=== PATIENT | male | born 1935 | race Caucasian/White ===

== ENCOUNTER 2018-12-07 13:35 | Inpatient (IN) | payer MEDICARE, BC ==
[2018-12-07 15:27] LABS: HEMATOCRIT 36.3 % (37.9-51.0); HEMOGLOBIN 12.3 g/dL (13.5-17.0); MEAN CORPUSCULAR HEMOGLOBIN 32.8 pg (27.0-33.4); MEAN CORPUSCULAR VOLUME 96 fl (80-97); PLATELET COUNT 307 10^3/uL (150-450); RED BLOOD COUNT 3.77 10^6/uL (4.35-5.55); RED CELL DISTRIBUTION WIDTH 13.9 % (11.5-14.0); WHITE BLOOD COUNT 23.4 10^3/uL (4.0-10.5)
[2018-12-07 15:28] LABS: VENOUS BLOOD BASE EXCESS -3.4 mmol/L; VENOUS BLOOD HCO3 20.4 mmol/L (20-32); VENOUS BLOOD PCO2 33.3 mmHg (35-63); VENOUS BLOOD PH 7.4 (7.30-7.42)
--- NOTE | 2018-12-07 15:30 | RADIOLOGY REPORT (SQ) ---
EXAM DESCRIPTION: CHEST SINGLE VIEW COMPLETED DATE/TIME: 12/07/2018 3:16 pm REASON FOR STUDY: pneumonia eval COMPARISON: None. EXAM PARAMETERS: NUMBER OF VIEWS: One view. TECHNIQUE: Single frontal radiographic view of the chest acquired. RADIATION DOSE: NA LIMITATIONS: None. FINDINGS: LUNGS AND PLEURA: Faintly defined opacification in the right base. MEDIASTINUM AND HILAR STRUCTURES: No masses. Contour normal. HEART AND VASCULAR STRUCTURES: Heart size is borderline. No jeni pulmonary edema. BONES: No acute findings. HARDWARE: None in the chest. OTHER: No other significant finding. IMPRESSION: Borderline cardiomegaly without pulmonary edema. Cannot exclude limited pneumonia in th e right middle lobe or lower lobe. TECHNICAL DOCUMENTATION: JOB ID: [id number] [employer]- All Rights Reserved Reading location - IP/workstation name: [email or web address]
[2018-12-07 15:33] LABS: INTERNATIONAL RATION (INR) 1.96; PROTHROMBIN TIME 22.6 SEC (11.4-15.4)
[2018-12-07 15:41] LABS: ALBUMIN 2.6 g/dL (3.5-5.0); ALKALINE PHOSPHATASE 190 U/L (38-126); ANION GAP 12 (5-19); ASPARTATE AMINO TRANSFERASE 148 U/L (17-59); BILIRUBIN,DIRECT 0.5 mg/dL (0.0-0.4); BILIRUBIN,TOTAL 0.7 mg/dL (0.2-1.3); BLOOD UREA NITROGEN 73 mg/dL (7-20); CALCIUM 8.3 mg/dL (8.4-10.2); CARBON DIOXIDE 20 mmol/L (22-30); CHLORIDE 100 mmol/L (98-107); GLUCOSE 89 mg/dL (75-110); POTASSIUM 5.9 mmol/L (3.6-5.0); TOTAL PROTEIN 5.4 g/dL (6.3-8.2)
[2018-12-07 16:08] LABS: ABSOLUTE LYMPHOCYTES# (MANUAL) 1.2 10^3/uL (0.5-4.7); ABSOLUTE MONOCYTES # (MANUAL) 0.9 10^3/uL (0.1-1.4); BASOPHILS % (MANUAL) 0 % (0-2); EOSINOPHILS % (MANUAL) 0 % (0-6); LYMPHOCYTES % (MANUAL) 5 % (13-45); MONOCYTES % (MANUAL) 4 % (3-13); SEGMENTED NEUTROPHILS % (MAN) 91 % (42-78); TOTAL CELLS COUNTED 100
[2018-12-07 16:11] LABS: PLATELET COMMENT ADEQUATE; RBC MORPHOLOGY COMMENT NORMO-CYTIC/CHROMIC
[2018-12-07] MEDS ORDERED: NORMAL SALINE 1000 ML 1,000 ML IV ONE ×2 (16:17→18:51)
[2018-12-07] MEDS ORDERED: CEFEPIME 1 GM/D5W RTU 1 GM/50 ML RTUPB IV ONE (16:17)
[2018-12-07] MEDS ORDERED: INSULIN REG, HUMAN 100 UNIT/ML 3 ML VIAL (PYX) IV ONE (16:19)
[2018-12-07] MEDS ORDERED: DEXTROSE 50%-WATER 25 GM/50 ML DISP.SYRIN IV ONE (16:19)
[2018-12-07] MEDS ORDERED: SODIUM POLYSTYRENE SULFONATE 15 GM/60 ML PO ONE (16:20)
[2018-12-07 17:04] LABS: APPEARANCE,URINE TURBID; BILIRUBIN,URINE NEGATIVE (NEGATIVE); COLOR,URINE YELLOW; GLUCOSE, URINE NEGATIVE (NEGATIVE); KETONES,URINE NEGATIVE (NEGATIVE); LEUKOCYTE ESTERASE,URINE MODERATE (NEGATIVE); NITRITE,URINE NEGATIVE (NEGATIVE); PROTEIN,URINE >=500 mg/dL (NEGATIVE); TRIPLE PHOSPHATE CRYSTAL,URINE MODERATE /HPF; URINE SPECIFIC GRAVITY 1.013; UROBILINOGEN,URINE NEGATIVE mg/dL (<2.0)
--- NOTE | 2018-12-07 17:14 | ER Document Report ---
ED General - General Chief Complaint: Urinary Problem Stated Complaint: WEAKNESS Time Seen by Provider: 12/07/18 13:53 Primary Care Provider: MAGGI RAMOS MD [Primary Care Provider] - Follow up as needed TRAVEL OUTSIDE OF THE [place] IN LAST 30 DAYS: No - HPI Notes: Patient is an 83-year-old male with a history of dementia, he cannot really offer me any significant history. Nursing did call the long-term. Evidently the patient was diagnosed recently with pneumonia as well as a urinary tract infection. It was noted by the physician that he was "not responding" so he was sent here for further evaluation. Patient does have an indwelling Iqbal. Evidently he had been hospitalized recently, had some acute urine retention. During that hospitalization he had fallen, was found to have some mild rhabdomyolysis and acute kidney injury, with a maximum creatinine of 2.2 at an outside facility. Prior to readmission back to the [facility] long-term, his creatinine was down to 1.2. They are unsure as to how long the urinary catheter had been in. The patient himself denies any pain. When I asked him if he was hungry he stated he was not. He has had diminished p.o. intake per nursing facility. - Related Data Allergies/Adverse Reactions: No Known Allergies Allergy (Unverified 12/07/18 15:18) Home Medications: Eliquis, Coreg, MiraLAX, Flomax, Tylenol, Ultram, unknown antibiotic Past Medical History - General Information source: Patient, Transfer Record, Outside Facility Records - Social History Smoking Status: Unknown if Ever Smoked Family History: Reviewed & Not Pertinent - Past Medical History Cardiac Medical History: Reports: Hx Atrial Fibrillation Review of Systems - Review of Systems -: Yes ROS unobtainable due to patient's medical condition Physical Exam - Vital signs Vitals: Temp Pulse Resp BP Pulse Ox 98.2 F 108 H 22 H 115/74 96 12/07/18 13:46 12/07/18 13:46 12/07/18 13:46 12/07/18 13:46 12/07/18 13:46 - Notes Notes: This is an 83-year-old male lying in the bed. He has Iqbal catheter in place with only scant urine noted. No acute distress. Head is normal cephalic atraumatic. Pupils are equal round, reactive to light. Oral mucosa slightly dry. No nuchal rigidity. Heart is irregularly irregular, mildly tachycardic. Lungs show mildly diminished breath sounds throughout but no wheezes, rales, rhonchi. Abdomen is globally tender with intermittent voluntary guarding. No rebound or other peritoneal signs. Extremities without cyanosis or clubbing. No posterior calf tenderness is noted. Patient is awake and alert. He is disoriented to person, place, and time. Course - Re-evaluation Re-evalutation: 12/07/18 17:15 Patient presents emergency department for evaluation. Sepsis work-up was initiated given his recent diagnosis of pneumonia as well as urinary tract infection. Laboratory investigations revealed a marked leukocytosis. His potassium is 5.9. He had been given IV fluids, as I can find no significant history of heart failure. Given his age and atrial fibrillation, however, these were only done judiciously and then hope to avoid any fluid overload. He was further given insulin, dextrose, Kayexalate. He was given IV cefepime to cover for the pneumonia evident on chest x-ray. Urine was found to be infected as well. EKG obtained and was in fact showing rapid atrial fibrillation. I suspect any rapidity is secondary to infection. Patient is abdomen patient's abdomen is significantly tender. CT scan of the abdomen and pelvis ordered to evaluate for possible abscess given his significant leukocytosis. 12/07/18 18:[address] scan failed to reveal any significant abscess. He does have a p leural effusion and a known pneumonia which is already being treated. We will admit the patient for further care. I did speak with Dr. Coleman regarding this patient. He asked that, given the time, this be passed on to the hourly shift manager physician. 12/07/18 18:51 - Vital Signs Vital signs: Temp Pulse Resp BP Pulse Ox 98.2 F 108 H 13 118/60 99 12/07/18 13:46 12/07/18 13:46 12/07/18 18:16 12/07/18 18:16 12/07/18 18:16 - Laboratory Result Diagrams: 12/07/18 15:02 12/07/18 15:02 Laboratory results interpreted by me: 12/07/18 12/07/18 12/07/18 15:02 15:02 15:02 WBC 23.4 H RBC 3.77 L Hgb 12.3 L Hct 36.3 L Seg Neuts % (Manual) 91 H Lymphocytes % (Manual) 5 L Abs Neuts (Manual) 21.3 H PT 22.6 H VBG pCO2 Sodium 132.0 L Potassium 5.9 H Carbon Dioxide 20 L BUN 73 H Creatinine 4.76 H Est GFR ( Amer) 14 L Est GFR (Non-Af Amer) 12 L Calcium 8.3 L Direct Bilirubin 0.5 H AST 148 H Alkaline Phosphatase 190 H Total Protein 5.4 L Albumin 2.6 L Urine Protein Urine Blood Ur Leukocyte Esterase 12/07/18 12/07/18 15:02 16:37 WBC RBC Hgb Hct Seg Neuts % (Manual) Lymphocytes % (Manual) Abs Neuts (Manual) PT VBG pCO2 33.3 L Sodium Potassium Carbon Dioxide BUN Creatinine Est GFR ( Amer) Est GFR (Non-Af Amer) Calcium Direct Bilirubin AST Alkaline Phosphatase Total Protein Albumin Urine Protein >=500 H Urine Blood SMALL H Ur Leukocyte Esterase MODERATE H - Diagnostic Test Radiology reviewed: Reports reviewed Radiology results interpreted by me: 12/07/18 17:17 Chest X-Ray 12/07/18 14:39 IMPRESSION: Borderline cardiomegaly without pulmonary edema. Cannot exclude limited pneumonia in the right middle lobe or lower lobe. - EKG Interpretation by Me Additional EKG results interpreted by me: 12/07/18 17:18 Atrial fibrillation with a rate of 110 bpm. Normal axis and intervals, no acute ST changes concerning for ischemia or infarction. No old studies available for comparison. Critical Care Note - Critical Care Note Total time excluding time spent on procedures (mins): 30 Discharge - Discharge Clinical Impression: Hyperkalemia Sepsis Qualifiers: Sepsis type: sepsis due to unspecified organism Severe sepsis acute organ dysfunction type: acute renal failure Acute renal failure type: unspecified Severe sepsis shock status: without septic shock Pneumonia Qualifiers: Laterality: right Lung location: unspecified part of lung Urinary tract infection Qualifiers: Urinary tract infection type: site unspecified Hematuria presence: without hematuria Qualified Code(s): N39.0 - Urinary tract infection, site not specified Acute renal failure Qualifiers: Acute renal failure type: unspecified Qualified Code(s): N17.9 - Acute kidney failure, unspecified Condition: Stable Disposition: ADMITTED INPATIENT Admitting Provider: Dr. Pederson Unit Admitted: [facility]U Referrals: MAGGI RAMOS MD [Primary Care Provider] - Follow up as needed
--- NOTE | 2018-12-07 18:30 | RADIOLOGY REPORT (SQ) ---
EXAM DESCRIPTION: CT ABD/PELVIS NO ORAL OR IV COMPLETED DATE/TIME: 12/07/2018 5:37 pm REASON FOR STUDY: abdominal tenderness, sepsis, GUICHO COMPARISON: None. TECHNIQUE: CT scan of the abdomen and pelvis performed without intravenous or oral contrast. Images reviewed with lung, soft tissue, and bone windows. Reconstructed coronal and sagittal MPR images revi ewed. All images stored on PACS. All CT scanners at this facility use dose modulation, iterative reconstruction, and/or weight based d osing when appropriate to reduce radiation dose to as low as reasonably achievable (ALARA). [facility]: Dose Right [facility]: CareDose [facility]: Dose Right [facility]: Teradose 4D [facility]: Smart Technologies RADIATION DOSE: CT Rad equipment meets quality standard of care and radiation dose reduction techniq ues were employed. CTDIvol: 14.3 mGy. DLP: 798 mGy-cm.mGy. LIMITATIONS: None. FINDINGS: LOWER CHEST: Moderate right pleural effusion with associated atelectasis in the right lowe r lobe. No mass. No infiltrate. NON-CONTRASTED LIVER, SPLEEN, ADRENALS: Evaluation limited by lack of IV contrast. No identified sign ificant masses. PANCREAS: No masses. No peripancreatic inflammatory changes. GALLBLADDER: Small gallstones are present. RIGHT KIDNEY AND URETER: Small intrarenal calculi. Mild hydronephrosis. No definite obstructing shan culus is seen. LEFT KIDNEY AND URETER: Mild hydronephrosis. No definite obstructing calculus is seen. AORTA AND RETROPERITONEUM: No aneurysm. No retroperitoneal masses or adenopathy. BOWEL AND PERITONEAL CAVITY: No obvious masses or inflammatory changes. No free fluid. APPENDIX: Not identified. PELVIS, BLADDER, AND ABDOMINAL WALL:A Iqbal catheter is present. No pelvic mass or fluid collection. BONES: Scoliosis and degenerative disc changes. OTHER: No other significant finding. IMPRESSION: Right pleural effusion with mild atelectasis in the right lower lobe. Small right intra renal calculi. Mild bilateral hydronephrosis. No obstructing calculus is seen on either side. Osse ous findings as described. COMMENT: Quality ID # [id number]: Final reports with documentation of one or more dose reduction techniques (e.g., Automated exposure control, adjustment of the mA and/or kV according to patient size, use of iterative reconstruction technique) TECHNICAL DOCUMENTATION: JOB ID: [id number] [employer]- All Rights Reserved Reading location - IP/workstation name: [email or web address]
[2018-12-07] MEDS ORDERED: ACETAMINOPHEN 325 MG TABLET PO PRN (19:28)
[2018-12-07] MEDS ORDERED: ONDANSETRON HCL INJ/PF 4 MG/2 ML SDV IV PRN (19:28)
[2018-12-07] MEDS ORDERED: MAG HYDROX/AL HYDROX/SIMETH SUSP 30 ML UDCUP PO PRN (19:28)
[2018-12-07] MEDS ORDERED: ZOLPIDEM TARTRATE 5 MG TABLET PO PRN (19:28)
[2018-12-07] MEDS ORDERED: MAGNESIUM HYDROXIDE SUSP 30 ML UDCUP PO PRN (19:28)
[2018-12-07] MEDS ORDERED: ALBUTEROL SULFATE 0.083% NEB 2.5 MG/3 ML AMPUL NEB PRN (19:28)
[2018-12-07] MEDS ORDERED: TRAMADOL HCL 50 MG TABLET PO PRN (19:50)
[2018-12-07] MEDS ORDERED: VANCOMYCIN HCL 0 MG in DEXTROSE 5%-WATER 250 ML IV NR (20:00)
--- NOTE | 2018-12-07 20:41 | EKG REPORT ---
SEVERITY:- ABNORMAL ECG - ATRIAL FIBRILLATION, V-RATE 74-133 LOW VOLTAGE IN FRONTAL LEADS : Confirmed by: Elly Dior MD 07-Dec-2018 20:41:24
[2018-12-07] MEDS: IPRATROPIUM/ALBUTEROL 0.5-2.5 MG/3 ML AMPUL NEB SCH (21:31)
[2018-12-07] MEDS ORDERED: APIXABAN 5 MG TABLET PO SCH (22:00)
--- NOTE | 2018-12-07 22:07 | PDOC H&P ---
History of Present Illness Admission Date/PCP: 12/07/18 18:57 MAGGI RAMOS MD Patient complains of: Not eating, not acting himself History of Present Illness: ANIL LOREDO is a 83 year old male who presents from his halfway facility with acute onset of recent anorexia as well as altered mental status. Is not acting himself at the halfway facility where he resides. There was no reported fever or chills. The patient is demented and oriented only to his name and therefore no history could be obtained from him. He was fairly somnolent but arousable. He was recently diagnosed with pneumonia and UTI and apparently failed outpatient management and therefore he was referred to the emergency room by his SNF physician. He has an indwelling Iqbal catheter that was noted to be obstructed and upon replacement of his Iqbal catheter had a 1600 mL of tea colored urine output later on urinated another 1600 mL. Upon presentation to the emergency room, his blood pressure was 115/74 with a pulse of 108 respiratory to 22 temperature 98.1 pulse 7096% on room air. Labs revealed leukocytosis 23.4 with hemoglobin of 12.3 hematocrit 36.3 with neutrophils of 91% with absolute neutrophils of 21.3. PT was 22.6 and INR 1.96. He has blood gas showed a pH of 7.4 with a bicarbonate of 20.4. CMP was remarkable for hypokalemia 137 hyperkalemia 5.9 for which the patient was given Kayexalate with subsequent large bowel management. Creatinine was 73 and 4.76. Alkaline phosphatase was 190 and AST 148 with a total protein of 5.4 and albumin 2.6 lactic acid was 1.3 and ALT 142. Urinalysis positive for UTI. Abdominal pelvic CT scan revealed right pleural effusion with mild atelectasis in the right lower lobe and small right intra renal calculi with mild bilateral hydronephrosis. EKG showed atrial relation with slightly rapid ventricle response of 110 with premature complexes and low voltage in frontal leads. The patient was given 1 L bolus of IV normal saline, IV Maxipime D5 50 insulin and Kayexalate for hyperkalemia. He will be admitted to an [facility] bed for further evaluation and management. Past Medical History Cardiac Medical History: Reports: Atrial Fibrillation, Congestive Heart Failure, Myocardial Infarction, Hypertension Pulmonary Medical History: Reports: Chronic Obstructive Pulmonary Disease (COPD), Pneumonia Endocrine Medical History: Reports: Diabetes Mellitus Type 2 Past Surgical History Past Surgical History: Unobtainable due to the patient's altered mental status and dementia Social History Smoking Status: Unknown if Ever Smoked Past Social History Note: No reported history of tobacco ETOH abuse or illicit drug use. Family History Family History: None Family History: Unobtainable due to the patient's dementia and altered mental status Parental Family History Reviewed: Yes Children Family History Reviewed: Yes Sibling(s) Family History Reviewed.: Yes Medication/Allergy Home Medications: Acetaminophen [Tylenol Extra Strength 500 mg Tablet] 500 mg PO Q6HP PRN 12/07/18 Apixaban [Eliquis 5 mg Tablet] 5 mg PO Q12 12/07/18 Carvedilol [Coreg 25 mg Tablet] 25 mg PO Q12 12/07/18 Polyethylene Glycol 3350 [Miralax Powder 17 gm/Packet] 17 gm PO DAILY 12/07/18 Tamsulosin HCl [Flomax 0.4 mg Cap.sr] 0.4 mg PO QPM 12/07/18 Tramadol HCl [Ultram 50 mg Tablet] 50 mg PO Q12HP PRN 12/07/18 Allergies/Adverse Reactions: No Known Allergies Allergy (Unverified 12/07/18 15:18) Review of Systems ROS unobtainable: Due to mental status Physical Exam Vital Signs: Temp Pulse Resp BP Pulse Ox 98.2 F 108 H 18 133/82 H 97 12/07/18 13:46 12/07/18 13:46 12/07/18 20:01 12/07/18 20:01 12/07/18 20:01 Intake & Output 12/06/18 12/07/18 12/08/18 06:59 06:59 06:59 Intake Total 1050 Balance 1050 Weight 108.2 kg Exam: Generally: Lethargic somnolent elderly male, mouth breathing, in no acute distress Vital signs-as listed Head - atraumatic, normocephalic. Pupils - equal, round and reactive to light and accommodation. Extraocular movements are intact. No scleral icterus. Oropharynx - moist mucous membranes and tongue. No pharyngeal erythema or exudate. Neck - supple. No JVD. Carotid pulses 2+ bilaterally. No carotid bruits. No palpable thyromegaly or lymphadenopathy. Cardiovascular - regular rate and rhythm. Normal S1 and S2. No murmurs, gallops or rubs. Lungs -diminished bibasilar breath sounds with right basal crackles Abdomen - soft and nontender. Positive bowel sounds. No palpable organomegaly or masses. Extremities -trace bilateral 1+ lower extremity pitting edema, clubbing or cyanosis. Neuro - grossly non-focal. He was alert and oriented only to his name. Skin -left hip dressed stage II as well as right ischial stage II and right upper back stage II decubitus ulcers dressed with DuoDERM and rectal exam - deferred. Results Laboratory Results: 12/07/18 15:02 12/07/18 15:02 12/07/18 12/07/18 12/07/18 15:02 15:02 15:02 WBC 23.4 H RBC 3.77 L Hgb 12.3 L Hct 36.3 L MCV 96 MCH 32.8 MCHC 34.0 RDW 13.9 Plt Count 307 Seg Neutrophils % Not Reportable Lymphocytes % Not Reportable Monocytes % Not Reportable Eosinophils % Not Reportable Basophils % Not Reportable Absolute Neutrophils Not Reportable Absolute Lymphocytes Not Reportable Absolute Monocytes Not Reportable Absolute Eosinophils Not Reportable Absolute Basophils Not Reportable VBG pH VBG pCO2 VBG HCO3 VBG Base Excess Sodium 132.0 L Potassium 5.9 H Chloride 100 Carbon Dioxide 20 L Anion Gap 12 BUN 73 H Creatinine 4.76 H Est GFR ( Amer) 14 L Est GFR (Non-Af Amer) 12 L Glucose 89 Lactic Acid 1.3 Calcium 8.3 L Total Bilirubin 0.7 AST 148 H Alkaline Phosphatase 190 H Total Protein 5.4 L Albumin 2.6 L Urine Color Urine Appearance Urine pH Ur Specific [place] Urine Protein Urine Glucose (UA) Urine Ketones Urine Blood Urine Nitrite Ur Leukocyte Esterase Urine WBC (Auto) Urine RBC (Auto) 12/07/18 12/07/18 15:02 16:37 WBC RBC Hgb Hct MCV MCH MCHC RDW Plt Count Seg Neutrophils % Lymphocytes % Monocytes % Eosinophils % Basophils % Absolute Neutrophils Absolute Lymphocytes Absolute Monocytes Absolute Eosinophils Absolute Basophils VBG pH 7.40 VBG pCO2 33.3 L VBG HCO3 20.4 VBG Base Excess -3.4 Sodium Potassium Chloride Carbon Dioxide Anion Gap BUN Creatinine Est GFR ( Amer) Est GFR (Non-Af Amer) Glucose Lactic Acid Calcium Total Bilirubin AST Alkaline Phosphatase Total Protein Albumin Urine Color YELLOW Urine Appearance TURBID Urine pH 9.0 Ur Specific [place] 1.013 Urine Protein >=500 H Urine Glucose (UA) NEGATIVE Urine Ketones NEGATIVE Urine Blood SMALL H Urine Nitrite NEGATIVE Ur Leukocyte Esterase MODERATE H Urine WBC (Auto) >182 Urine RBC (Auto) 154 Impressions: Chest X-Ray 12/07/18 14:39 IMPRESSION: Borderline cardiomegaly without pulmonary edema. Cannot exclude limited pneumonia in the right middle lobe or lower lobe. Abdomen/Pelvis CT 12/07/18 16:56 IMPRESSION: Right pleural effusion with mild atelectasis in the right lower lobe. Small right intrarenal calculi. Mild bilateral hydronephrosis. No obstructing calculus is seen on either side. Osseous findings as described. Assessment and Plan - Diagnosis (1) Sepsis Qualifiers: Sepsis type: sepsis due to unspecified organism Severe sepsis acute organ dysfunction type: acute renal failure Acute renal failure type: unspecified Severe sepsis shock status: without septic shock Is this a current diagnosis for this admission?: Yes Plan: This likely secondary to UTI and pneumonia. His sepsis is without severe sepsis or septic shock. The patient will be admitted to an [facility] bed and placed on continued antibiotic therapy with IV cefepime and vancomycin as he could be having healthcare associated pneumonia and is considered risk for Pseudomonas and MRSA given his halfway facility residence. Sputum and blood cultures will be followed. (2) Urinary tract infection Qualifiers: Urinary tract infection type: site unspecified Hematuria presence: without hematuria Qualified Code(s): N39.0 - Urinary tract infection, site not specified Is this a current diagnosis for this admission?: Yes (3) Pneumonia Qualifiers: Laterality: right Lung location: unspecified part of lung Is this a current diagnosis for this admission?: Yes Plan: This is likely healthcare a history of pneumonia. The patient will be placed on IV cefepime and vancomycin being a halfway facility resident for concern about healthcare associated pneumonia as he is considered a Pseudomonas and MRSA risk given his residence. Mucolytic therapy be provided as well as duo nebs q.i.d. and q.4 hours p.r.n.. Sputum Gram stain culture and sensitivity will be obtained. Will follow Blood Cultures. (4) Acute kidney injury Is this a current diagnosis for this admission?: Yes Plan: This is likely secondary to volume depletion as well as obstructive uropathy from his obstructed urinary catheter and urinary retention and resulting and bilateral mild hydronephrosis. We should expect significant improvement in his BUN and creatinine with hydration and relief of his urinary retention. BMP will be followed. (5) Chronic atrial fibrillation Is this a current diagnosis for this admission?: Yes Plan: Eliquis will be continued as well as Coreg. He has slightly rapid atrial fibrillation for which he will be given 5 mg of IV Cardizem (6) Hyperkalemia Is this a current diagnosis for this admission?: Yes Plan: This was managed and potassium level will be followed. (7) DVT prophylaxis Is this a current diagnosis for this admission?: Yes Plan: We will continue Eliquis. - Time Time Spent with patient: 35 or more minutes Medications reviewed and adjusted accordingly: Yes Anticipated discharge: SNF Within: within 72 hours - Inpatient Certification Based on my medical assessment, after consideration of the patient's comorbidities, presenting symptoms, or acuity I expect that the services needed warrant INPATIENT care.: Yes I certify that my determination is in accordance with my understanding of Medicare's requirements for reasonable and necessary INPATIENT services [42 CFR 412.3e].: Yes Medical Necessity: Need Close Monitoring Due to Risk of Patient Decompensation, Need For IV Fluids, Need for IV Antibiotics Post Hospital Care: D/C or Transfer Summary - Plan Summary Plan Summary: The plan of care was discussed in details with the patient. I answered all questions. The patient agreed to proceed with the above-mentioned plan. The patient is presumably full code. This note was created by [employer] software and may contain typo errors that may have not been proofread.
[2018-12-07] MEDS ORDERED: DILTIAZEM HCL INJ 25 MG/5 ML VIAL IV ONE (22:30)
[2018-12-07] MEDS ORDERED: VANCOMYCIN HCL INJ 1000 MG VIAL ONE (23:45)
[2018-12-07] MEDS ORDERED: VANCOMYCIN HCL INJ 500 MG VIAL ONE (23:46)
[2018-12-08] MEDS: VANCOMYCIN HCL 1,500 MG in DEXTROSE 5%-WATER 250 ML IV SCH (00:16)
[2018-12-08] MEDS: APIXABAN 2.5 MG TABLET PO SCH ×3 (00:19→21:50)
[2018-12-08] MEDS: GUAIFENESIN 600 MG TABLET.SA PO SCH ×3 (00:19→21:50)
[2018-12-08] MEDS: TAMSULOSIN HCL 0.4 MG CAP.SR.24H PO SCH ×2 (00:19→17:18)
[2018-12-08] MEDS: CARVEDILOL 12.5 MG TABLET PO SCH ×3 (00:19→21:50)
[2018-12-08] MEDS ORDERED: DILTIAZEM HCL INJ 25 MG/5 ML VIAL ONE (00:51)
[2018-12-08] MEDS: NORMAL SALINE 1000 ML 1,000 ML IV PRN ×2 (03:03→14:03)
[2018-12-08 05:30] LABS: ABSOLUTE EOSINOPHILS # (AUTO) 0.1 10^3/uL (0.0-0.6); ABSOLUTE LYMPHOCYTES (AUTO) 0.9 10^3/uL (0.5-4.7); ABSOLUTE MONOCYTES (AUTO) 0.7 10^3/uL (0.1-1.4); ABSOLUTE NEUT (AUTO) 14.1 10^3/uL (1.7-8.2); BASOPHILS % (AUTO) 0.1 % (0-2); EOSINOPHILS % (AUTO) 0.4 % (0-6); HEMATOCRIT 30.2 % (37.9-51.0); LYMPHOCYTES % (AUTO) 5.4 % (13-45); MEAN CORPUSCULAR HEMOGLOBIN 32.7 pg (27.0-33.4); MEAN CORPUSCULAR VOLUME 96 fl (80-97); MONOCYTES % (AUTO) 4.4 % (3-13); PLATELET COUNT 248 10^3/uL (150-450); RED BLOOD COUNT 3.14 10^6/uL (4.35-5.55); RED CELL DISTRIBUTION WIDTH 13.8 % (11.5-14.0); SEGMENTED NEUTROPHILS % (AUTO) 89.7 % (42-78); TOTAL CELLS COUNTED % (AUTO) 100 %; WHITE BLOOD COUNT 15.7 10^3/uL (4.0-10.5)
[2018-12-08 05:42] LABS: HEMOGLOBIN 10.2 g/dL (13.5-17.0)
[2018-12-08 05:49] LABS: ALKALINE PHOSPHATASE 153 U/L (38-126); ANION GAP 8 (5-19); ASPARTATE AMINO TRANSFERASE 95 U/L (17-59); BILIRUBIN,DIRECT 0.4 mg/dL (0.0-0.4); BILIRUBIN,TOTAL 0.6 mg/dL (0.2-1.3); BLOOD UREA NITROGEN 57 mg/dL (7-20); CALCIUM 7.9 mg/dL (8.4-10.2); CARBON DIOXIDE 20 mmol/L (22-30); CHLORIDE 109 mmol/L (98-107); GLUCOSE 86 mg/dL (75-110); TOTAL PROTEIN 4.5 g/dL (6.3-8.2)
[2018-12-08 06:00] LABS: POTASSIUM 3.9 mmol/L (3.6-5.0)
[2018-12-08] MEDS: IPRATROPIUM/ALBUTEROL 0.5-2.5 MG/3 ML AMPUL NEB SCH ×4 (08:09→20:10)
[2018-12-08] MEDS: POLYETHYLENE GLYCOL 3350 POWDER 17 GM/1 PACKET PO SCH (09:59)
[2018-12-08] MEDS ORDERED: ENOXAPARIN SODIUM INJ 40 MG/0.4 ML DISP.SYRIN SUBCUT SCH (10:00)
--- NOTE | 2018-12-08 10:07 | Progress Note Acknowledgement ---
Progress Note Acknowledgement Progess Note Acknowledgement: I, the undersigned member of the medical staff with appropriate privileges and with supervisory authority over [David Palomino], a dependent practice allied health professional, acknowledge that I have reviewed the progress notes entered on this patient, and in my professional judgment believe that the assessment made and/or any care evidenced was appropriate
--- NOTE | 2018-12-08 10:13 | PDOC PROGRESS REPORT ---
Subjective Progress Note for:: 12/08/18 Subjective:: December 08, 2018-no complaints this a.m. Reason For Visit: PNA, UTI, GUICHO Physical Exam Vital Signs: Temp Pulse Resp BP Pulse Ox 97.8 F 96 18 129/65 H 95 12/08/18 08:01 12/08/18 08:09 12/08/18 08:09 12/08/18 08:01 12/08/18 08:09 Intake & Output 12/07/18 12/08/18 12/09/18 06:59 06:59 06:59 Intake Total 2300 Output Total 800 650 Balance 1500 -650 Weight 102 kg General appearance: PRESENT: no acute distress, well-developed, well-nourished Neck exam: ABSENT: carotid bruit, JVD, lymphadenopathy, thyromegaly Respiratory exam: PRESENT: clear to auscultation surinder. ABSENT: rales, rhonchi, wheezes Cardiovascular exam: PRESENT: RRR. ABSENT: diastolic murmur, rubs, systolic murmur Pulses: PRESENT: normal dorsalis pedis pul Vascular exam: PRESENT: normal capillary refill GI/Abdominal exam: PRESENT: normal bowel sounds, soft. ABSENT: distended, guarding, mass, organolmegaly, rebound, tenderness Neurological exam: PRESENT: alert, awake Psychiatric exam: PRESENT: appropriate affect, normal mood. ABSENT: homicidal ideation, suicidal ideation Skin exam: PRESENT: other - Multiple areas on left scapula buttock lower extremities skin breakdown will be followed by surgery. Results Laboratory Results: 12/08/18 04:54 12/08/18 04:54 12/07/18 12/07/18 12/07/18 15:02 15:02 15:02 WBC 23.4 H RBC 3.77 L Hgb 12.3 L Hct 36.3 L MCV 96 MCH 32.8 MCHC 34.0 RDW 13.9 Plt Count 307 Seg Neutrophils % Not Reportable Lymphocytes % Not Reportable Monocytes % Not Reportable Eosinophils % Not Reportable Basophils % Not Reportable Absolute Neutrophils Not Reportable Absolute Lymphocytes Not Reportable Absolute Monocytes Not Reportable Absolute Eosinophils Not Reportable Absolute Basophils Not Reportable VBG pH VBG pCO2 VBG HCO3 VBG Base Excess Sodium 132.0 L Potassium 5.9 H Chloride 100 Carbon Dioxide 20 L Anion Gap 12 BUN 73 H Creatinine 4.76 H Est GFR ( Amer) 14 L Est GFR (Non-Af Amer) 12 L Glucose 89 Lactic Acid 1.3 Calcium 8.3 L Total Bilirubin 0.7 AST 148 H Alkaline Phosphatase 190 H Total Protein 5.4 L Albumin 2.6 L Urine Color Urine Appearance Urine pH Ur Specific Terrell Urine Protein Urine Glucose (UA) Urine Ketones Urine Blood Urine Nitrite Ur Leukocyte Esterase Urine WBC (Auto) Urine RBC (Auto) 12/07/18 12/07/18 12/08/18 15:02 16:37 04:54 WBC 15.7 H RBC 3.14 L Hgb 10.2 L D Hct 30.2 L MCV 96 MCH 32.7 MCHC 34.0 RDW 13.8 Plt Count 248 Seg Neutrophils % 89.7 H Lymphocytes % 5.4 L Monocytes % 4.4 Eosinophils % 0.4 Basophils % 0.1 Absolute Neutrophils 14.1 H Absolute Lymphocytes 0.9 Absolute Monocytes 0.7 Absolute Eosinophils 0.1 Absolute Basophils 0.0 VBG pH 7.40 VBG pCO2 33.3 L VBG HCO3 20.4 VBG Base Excess -3.4 Sodium Potassium Chloride Carbon Dioxide Anion Gap BUN Creatinine Est GFR ( Amer) Est GFR (Non-Af Amer) Glucose Lactic Acid Calcium Total Bilirubin AST Alkaline Phosphatase Total Protein Albumin Urine Color YELLOW Urine Appearance TURBID Urine pH 9.0 Ur Specific Terrell 1.013 Urine Protein >=500 H Urine Glucose (UA) NEGATIVE Urine Ketones NEGATIVE Urine Blood SMALL H Urine Nitrite NEGATIVE Ur Leukocyte Esterase MODERATE H Urine WBC (Auto) >182 Urine RBC (Auto) 154 12/08/18 04:54 WBC RBC Hgb Hct MCV MCH MCHC RDW Plt Count Seg Neutrophils % Lymphocytes % Monocytes % Eosinophils % Basophils % Absolute Neutrophils Absolute Lymphocytes Absolute Monocytes Absolute Eosinophils Absolute Basophils VBG pH VBG pCO2 VBG HCO3 VBG Base Excess Sodium 137.4 Potassium 3.9 D Chloride 109 H Carbon Dioxide 20 L Anion Gap 8 BUN 57 H Creatinine 2.43 H Est GFR ( Amer) 31 L Est GFR (Non-Af Amer) 26 L Glucose 86 Lactic Acid Calcium 7.9 L Total Bilirubin 0.6 AST 95 H Alkaline Phosphatase 153 H Total Protein 4.5 L Albumin 2.0 L Urine Color Urine Appearance Urine pH Ur Specific Terrell Urine Protein Urine Glucose (UA) Urine Ketones Urine Blood Urine Nitrite Ur Leukocyte Esterase Urine WBC (Auto) Urine RBC (Auto) Impressions: Chest X-Ray 12/07/18 14:39 IMPRESSION: Borderline cardiomegaly without pulmonary edema. Cannot exclude limited pneumonia in the right middle lobe or lower lobe. Abdomen/Pelvis CT 12/07/18 16:56 IMPRESSION: Right pleural effusion with mild atelectasis in the right lower lobe. Small right intrarenal calculi. Mild bilateral hydronephrosis. No obstructing calculus is seen on either side. Osseous findings as described. Assessment and Plan - Diagnosis (1) Sepsis Qualifiers: Sepsis type: sepsis due to unspecified organism Severe sepsis acute organ dysfunction type: acute renal failure Acute renal failure type: unspecified Severe sepsis shock status: without septic shock Is this a current diagnosis for this admission?: Yes Plan: This likely secondary to UTI and pneumonia. His sepsis is without severe sepsis or septic shock. The patient will be admitted to an U bed and placed on continued antibiotic therapy with IV cefepime and vancomycin as he could be having healthcare associated pneumonia and is considered risk for Pseudomonas and MRSA given his alf facility residence. Sputum and blood cultures will be followed. December 08, 2018-most likely from UTI and pneumonia. Continue IV vancomycin and cefepime. Await culture offending organism. (2) Urinary tract infection Qualifiers: Urinary tract infection type: site unspecified Hematuria presence: without hematuria Qualified Code(s): N39.0 - Urinary tract infection, site not specif ied Is this a current diagnosis for this admission?: Yes Plan: December 08, 2018-continue cefepime and await cultures. (3) Pneumonia Qualifiers: Laterality: right Lung location: unspecified part of lung Is this a current diagnosis for this admission?: Yes Plan: This is likely healthcare a history of pneumonia. The patient will be placed on IV cefepime and vancomycin being a alf facility resident for concern about healthcare associated pneumonia as he is considered a Pseudomonas and MRSA risk given his residence. Mucolytic therapy be provided as well as duo nebs q.i.d. and q.4 hours p.r.n.. Sputum Gram stain culture and sensitivity will be obtained. Will follow Blood Cultures. December 08, 2018-healthcare acquired pneumonia. Patient from [facility]. Continue IV vancomycin and cefepime. Blood cultures and sputum culture for offending organism may change plan of care as appropriate. (4) Acute kidney injury Is this a current diagnosis for this admission?: Yes Plan: This is likely secondary to volume depletion as well as obstructive uropathy from his obstructed urinary catheter and urinary retention and resulting and bilateral mild hydronephrosis. We should expect significant improvement in his BUN and creatinine with hydration and relief of his urinary retention. BMP will be followed. December 08, 2018-multifactorial. Patient volume depleted as well as a post obstructive uropathy from obstructed Iqbal catheter. Iqbal catheter was placed patient had 1600 cc out at that time. Patient had some hematuria most likely from trauma from replacement of Iqbal catheter yesterday. Creatinine dropped from 4-2. Continue to follow (5) Chronic atrial fibrillation Is this a current diagnosis for this admission?: Yes Plan: Eliquis will be continued as well as Coreg. He has slightly rapid atrial fibrillation for which he will be given 5 mg of IV Cardizem December 08, 2018-continue Eliquis and Coreg at this time. Rate is slightly sreekanth vated at 103 (6) Hyperkalemia Is this a current diagnosis for this admission?: Yes Plan: This was managed and potassium level will be followed. December 08, 2018-resolved at this time continue to follow with daily BMP. - Time Time Spent with patient: 15-24 minutes - Inpatient Certification Based on my medical assessment, after consideration of the patient's comor bidities, presenting symptoms, or acuity I expect that the services needed warrant INPATIENT care.: Yes I certify that my determination is in accordance with my understanding of Medicare's requirements for reasonable and necessary INPATIENT services [42 CFR 412.3e].: Yes Medical Necessity: Other - IV fluid, IV antibiotics
[2018-12-08] MEDS: CEFEPIME HCL 2 GM in DEXTROSE 5%-WATER 50 ML IV SCH (17:19)
[2018-12-08] MEDS ORDERED: CEFEPIME 2 GM/D5W RTU 2 GM/50 ML RTUPB IV SCH (18:00)
[2018-12-08] MEDS: SILVER SULFADIAZINE 1% CREAM 50 GM TP SCH (23:04)
[2018-12-09] MEDS: NORMAL SALINE 1000 ML 1,000 ML IV PRN ×2 (02:19→14:19)
[2018-12-09] MEDS: SILVER SULFADIAZINE 1% CREAM 50 GM TP SCH ×4 (05:45→22:41)
[2018-12-09 06:12] LABS: ABSOLUTE EOSINOPHILS # (AUTO) 0.1 10^3/uL (0.0-0.6); ABSOLUTE MONOCYTES (AUTO) 0.5 10^3/uL (0.1-1.4); ABSOLUTE NEUT (AUTO) 6.2 10^3/uL (1.7-8.2); BASOPHILS % (AUTO) 0.1 % (0-2); EOSINOPHILS % (AUTO) 1.6 % (0-6); HEMATOCRIT 30.2 % (37.9-51.0); HEMOGLOBIN 10.3 g/dL (13.5-17.0); LYMPHOCYTES % (AUTO) 13.1 % (13-45); MEAN CORPUSCULAR HEMOGLOBIN 32.9 pg (27.0-33.4); MEAN CORPUSCULAR HGB CONC 34.2 g/dL (32.0-36.0); MEAN CORPUSCULAR VOLUME 96 fl (80-97); MONOCYTES % (AUTO) 5.8 % (3-13); PLATELET COUNT 263 10^3/uL (150-450); RED BLOOD COUNT 3.14 10^6/uL (4.35-5.55); RED CELL DISTRIBUTION WIDTH 13.9 % (11.5-14.0); SEGMENTED NEUTROPHILS % (AUTO) 79.4 % (42-78); TOTAL CELLS COUNTED % (AUTO) 100 %; WHITE BLOOD COUNT 7.8 10^3/uL (4.0-10.5)
[2018-12-09 06:31] LABS: BLOOD UREA NITROGEN 40 mg/dL (7-20); CALCIUM 7.8 mg/dL (8.4-10.2); GLUCOSE 80 mg/dL (75-110); POTASSIUM 4.1 mmol/L (3.6-5.0)
[2018-12-09 06:41] LABS: ANION GAP 7 (5-19); CARBON DIOXIDE 19 mmol/L (22-30); CHLORIDE 112 mmol/L (98-107)
[2018-12-09] MEDS: IPRATROPIUM/ALBUTEROL 0.5-2.5 MG/3 ML AMPUL NEB SCH ×4 (08:10→20:25)
[2018-12-09] MEDS: APIXABAN 2.5 MG TABLET PO SCH ×2 (09:31→22:40)
[2018-12-09] MEDS: CARVEDILOL 12.5 MG TABLET PO SCH ×2 (09:31→22:40)
[2018-12-09] MEDS: POLYETHYLENE GLYCOL 3350 POWDER 17 GM/1 PACKET PO SCH (09:31)
[2018-12-09] MEDS: GUAIFENESIN 600 MG TABLET.SA PO SCH ×2 (09:31→22:40)
--- NOTE | 2018-12-09 11:11 | PDOC PROGRESS REPORT ---
Subjective Progress Note for:: 12/09/18 Subjective:: December 08, 2018-no complaints this a.m. December 09, 2018-no complaints this a.m. Reason For Visit: PNA, UTI, GUICHO Physical Exam Vital Signs: Temp Pulse Resp BP Pulse Ox 98.1 F 99 18 123/85 97 12/09/18 07:42 12/09/18 08:15 12/09/18 08:15 12/09/18 07:42 12/09/18 08:15 Intake & Output 12/08/18 12/09/18 12/10/18 06:59 06:59 06:59 Intake Total 2300 2408 Output Total 800 2500 Balance 1500 -92 Weight 102 kg 119.8 kg General appearance: PRESENT: no acute distress, well-developed, well-nourished Neck exam: ABSENT: carotid bruit, JVD, lymphadenopathy, thyromegaly Respiratory exam: PRESENT: clear to auscultation surinder. ABSENT: rales, rhonchi, wheezes Cardiovascular exam: PRESENT: RRR. ABSENT: diastolic murmur, rubs, systolic mur mur Pulses: PRESENT: normal dorsalis pedis pul Vascular exam: PRESENT: normal capillary refill GI/Abdominal exam: PRESENT: normal bowel sounds, soft. ABSENT: distended, guarding, mass, organolmegaly, rebound, tenderness Extremities exam: PRESENT: full ROM. ABSENT: calf tenderness, clubbing, pedal edema Neurological exam: PRESENT: alert, awake, oriented to person, oriented to place, oriented to time, oriented to situation, CN II-XII grossly intact. ABSENT: motor sensory deficit Psychiatric exam: PRESENT: appropriate affect, normal mood. ABSENT: homicidal ideation, suicidal ideation Skin exam: PRESENT: other - Multiple areas of breakdown on left shoulder left buttock and throughout the lower extremities. Results Laboratory Results: 12/09/18 05:27 12/09/18 05:27 12/09/18 12/09/18 05:27 05:27 WBC 7.8 RBC 3.14 L Hgb 10.3 L Hct 30.2 L MCV 96 MCH 32.9 MCHC 34.2 RDW 13.9 Plt Count 263 Seg Neutrophils % 79.4 H Lymphocytes % 13.1 Monocytes % 5.8 Eosinophils % 1.6 Basophils % 0.1 Absolute Neutrophils 6.2 Absolute Lymphocytes 1.0 Absolute Monocytes 0.5 Absolute Eosinophils 0.1 Absolute Basophils 0.0 Sodium 137.8 Potassium 4.1 Chloride 112 H Carbon Dioxide 19 L Anion Gap 7 BUN 40 H Creatinine 1.17 Est GFR ( Amer) > 60 Est GFR (Non-Af Amer) > 60 Glucose 80 Calcium 7.8 L Impressions: Chest X-Ray 12/07/18 14:39 IMPRESSION: Borderline cardiomegaly without pulmonary edema. Cannot exclude limited pneumonia in the right middle lobe or lower lobe. Abdomen/Pelvis CT 12/07/18 16:56 IMPRESSION: Right pleural effusion with mild atelectasis in the right lower lo be. Small right intrarenal calculi. Mild bilateral hydronephrosis. No obstructing calculus is seen on either side. Osseous findings as described. Assessment and Plan - Diagnosis (1) Sepsis Qualifiers: Sepsis type: sepsis due to unspecified organism Severe sepsis acute organ dysfunction type: acute renal failure Acute renal failure type: unspecified Severe sepsis shock status: without septic shock Is this a current diagnosis for this admission?: Yes Plan: This likely secondary to UTI and pneumonia. His sepsis is without severe sepsis or septic shock. The patient will be admitted to an [facility] bed and placed on continued antibiotic therapy with IV cefepime and vancomycin as he could be having healthcare associated pneumonia and is considered risk for Pseudomonas an d MRSA given his senior care facility residence. Sputum and blood cultures will be followed. December 08, 2018-most likely from UTI and pneumonia. Continue IV vancomycin and cefepime. Await culture offending organism. December 09, 2018-urine showing gram-positive cocci in clusters. Awaiting sensitivity. Patient continued on vancomycin and cefepime. (2) Urinary tract infection Qualifiers: Urinary tract infection type: site unspecified Hematuria presence: without hematuria Qualified Code(s): N39.0 - Urinary tract infection, site not specified Is this a current diagnosis for this admission?: Yes Plan: December 08, 2018-continue cefepime and await cultures. December 09 2018-patient continued on cefepime and vancomycin. Urine culture showing gram-positive cocci in clusters no sensitivity at this time. (3) Pneumonia Qualifiers: Laterality: right Lung location: unspecified part of lung Is this a current diagnosis for this admission?: Yes Plan: This is likely healthcare a history of pneumonia. The patient will be placed on IV cefepime and vancomycin being a senior care facility resident for concern about healthcare associated pneumonia as he is considered a Pseudomonas and MRSA risk given his residence. Mucolytic therapy be provided as well as duo nebs q.i.d. and q.4 hours p.r.n.. Sputum Gram stain culture and sensitivity will be obtained. Will follow Blood Cultures. December 08, 2018-healthcare acquired pneumonia. Patient from [facility]. Continue IV vancomycin and cefepime. Blood cultures and sputum culture for offending organism may change plan of care as appropriate. December 09, 2018-blood cultures negative this time. Await final. Continue vancomycin and cefepime (4) Acute kidney injury Is this a current diagnosis for this admission?: Yes Plan: This is likely secondary to volume depletion as well as obstructive uropathy from his obstructed urinary catheter and urinary retention and resulting and bilateral mild hydronephrosis. We should expect significant improvement in his BUN and creatinine with hydration and relief of his urinary retention. BMP will be followed. December 08, 2018-multifactorial. Patient volume depleted as well as a post obstructive uropathy from obstructed Iqbal catheter. Iqbal catheter was placed patient had 1600 cc out at that time. Patient had some hematuria most likely from trauma from replacement of Iqbal catheter yesterday. Creatinine dropped from 4-2. Continue to follow December 09, 2018-completely resolved at this time. Continue to follow daily BMP. (5) Chronic atrial fibrillation Is this a current diagnosis for this admission?: Yes Plan: Eliquis will be continued as well as Coreg. He has slightly rapid atrial fibrillation for which he will be given 5 mg of IV Cardizem December 08, 2018-continue Eliquis and Coreg at this time. Rate is slightly elevated at 103 December 09, 2018-continue Eliquis and Coreg (6) Hyperkalemia Is this a current diagnosis for this admission?: Yes Plan: This was managed and potassium level will be followed. December 08, 2018-resolved at this time continue to follow with daily BMP. December 09, 2018-continue resolution. Daily BMP - Time Time Spent with patient: 15-24 minutes - Inpatient Certification Based on my medical assessment, after consideration of the patient's comorbidities, presenting symptoms, or acuity I expect that the services needed warrant INPATIENT care.: Yes I certify that my determination is in accordance with my understanding of Medicare's requirements for reasonable and necessary INPATIENT services [42 CFR 412.3e].: Yes Medical Necessity: Other - IV antibiotics
[2018-12-09] MEDS: CEFEPIME HCL 2 GM in DEXTROSE 5%-WATER 50 ML IV SCH (18:02)
[2018-12-09] MEDS: TAMSULOSIN HCL 0.4 MG CAP.SR.24H PO SCH (18:03)
[2018-12-09] MEDS: VANCOMYCIN HCL 1,500 MG in DEXTROSE 5%-WATER 250 ML IV SCH (22:40)
[2018-12-10] MEDS: NORMAL SALINE 1000 ML 1,000 ML IV PRN (00:30)
[2018-12-10 06:19] LABS: ABSOLUTE EOSINOPHILS # (AUTO) 0.1 10^3/uL (0.0-0.6); ABSOLUTE LYMPHOCYTES (AUTO) 0.9 10^3/uL (0.5-4.7); ABSOLUTE MONOCYTES (AUTO) 0.5 10^3/uL (0.1-1.4); ABSOLUTE NEUT (AUTO) 5.3 10^3/uL (1.7-8.2); BASOPHILS % (AUTO) 0.3 % (0-2); EOSINOPHILS % (AUTO) 2.1 % (0-6); HEMATOCRIT 33.5 % (37.9-51.0); HEMOGLOBIN 11.3 g/dL (13.5-17.0); LYMPHOCYTES % (AUTO) 13.1 % (13-45); MEAN CORPUSCULAR HEMOGLOBIN 32.7 pg (27.0-33.4); MEAN CORPUSCULAR HGB CONC 33.8 g/dL (32.0-36.0); MEAN CORPUSCULAR VOLUME 97 fl (80-97); MONOCYTES % (AUTO) 7.4 % (3-13); PLATELET COUNT 298 10^3/uL (150-450); RED BLOOD COUNT 3.46 10^6/uL (4.35-5.55); RED CELL DISTRIBUTION WIDTH 13.5 % (11.5-14.0); SEGMENTED NEUTROPHILS % (AUTO) 77.1 % (42-78); TOTAL CELLS COUNTED % (AUTO) 100 %; WHITE BLOOD COUNT 6.8 10^3/uL (4.0-10.5)
[2018-12-10] MEDS: SILVER SULFADIAZINE 1% CREAM 50 GM TP SCH ×2 (06:26→16:00)
[2018-12-10 06:42] LABS: ANION GAP 6 (5-19); BLOOD UREA NITROGEN 28 mg/dL (7-20); CALCIUM 7.8 mg/dL (8.4-10.2); CARBON DIOXIDE 19 mmol/L (22-30); CHLORIDE 108 mmol/L (98-107); GLUCOSE 88 mg/dL (75-110); POTASSIUM 4.4 mmol/L (3.6-5.0)
[2018-12-10] MEDS: IPRATROPIUM/ALBUTEROL 0.5-2.5 MG/3 ML AMPUL NEB SCH (07:58)
[2018-12-10] MEDS: POLYETHYLENE GLYCOL 3350 POWDER 17 GM/1 PACKET PO SCH (10:42)
[2018-12-10] MEDS: CARVEDILOL 12.5 MG TABLET PO SCH (10:42)
[2018-12-10] MEDS: GUAIFENESIN 600 MG TABLET.SA PO SCH (10:42)
[2018-12-10] MEDS: APIXABAN 2.5 MG TABLET PO SCH (10:42)
--- NOTE | 2018-12-10 11:44 | PDOC DISCHARGE SUMMARY ---
General - Admit/Disc Date/PCP Admission Date/Primary Care Provider: 12/07/18 18:57 MAGGI RAMOS MD Discharge Date: 12/10/18 - Discharge Diagnosis (1) Sepsis Is this a current diagnosis for this admission?: Yes (2) Urinary tract infection Is this a current diagnosis for this admission?: Yes (3) Pneumonia Is this a current diagnosis for this admission?: Yes (4) Acute kidney injury Is this a current diagnosis for this admission?: Yes (5) Chronic atrial fibrillation Is this a current diagnosis for this admission?: Yes (6) Hyperkalemia Is this a current diagnosis for this admission?: Yes - Additional Information Resuscitation Status: Full Code Discharge Diet: As Tolerated Discharge Activity: Activity As Tolerated Prescriptions: Nitrofurantoin Macrocrystal [Nitrofurantoin] 50 mg PO Q6H 10 Days #40 capsule Home Medications: Acetaminophen [Tylenol Extra Strength 500 mg Tablet] 500 mg PO Q6HP PRN 12/07/18 Apixaban [Eliquis 5 mg Tablet] 5 mg PO Q12 12/07/18 Carvedilol [Coreg 25 mg Tablet] 25 mg PO Q12 12/07/18 Polyethylene Glycol 3350 [Miralax Powder 17 gm/Packet] 17 gm PO DAILY 12/07/18 Tamsulosin HCl [Flomax 0.4 mg Cap.sr] 0.4 mg PO QPM 12/07/18 Tramadol HCl [Ultram 50 mg Tablet] 50 mg PO Q12HP PRN 12/07/18 Nitrofurantoin Macrocrystal [Nitrofurantoin] 50 mg PO Q6H 10 Days #40 capsule 12/10/18 History of Present Illness Patient complains of: None this a.m. History of Present Illness: ANIL LOREDO is a 83 year old male who presented to the ER with altered mental status and anorexia Hospital Course Hospital Course: Patient presented to ER on 12/07/2018 from [facility] facility with acute onset of recent anorexia as well as altered mental status. Staff at the resident's nursing facility states he was not acting himself although they reported no fever or chills. Patient does have baseline dementia and is or iented only to his name. He was somewhat somnolent but arousable in the ER and was recently diagnosed with pneumonia and a UTI and had failed outpatient management. Patient does have an indwelling Iqbal catheter and was noted to have obstruction. Iqbal catheter was placed with an automatic 600 mL's of tea colored urine output. Urinalysis in the ER showed UTI, abdominal pelvic CT showed right pleural effusion with mild atelectasis and a small right intrarenal calculi with mild bilateral hydronephrosis. Patient was placed in IMCU was given IV antibiotics IV fluids and Kayexalate for hyperkalemia. At this time patient is improved sufficiently return back to his nursing facility. I will c ontinue patient on nitrofurantoin 50 mg p.o. every 6 hours x10 days for a UTI with enterococcus facialis. Patient also has multiple wounds that we have been placing Silvadene to the one on his left hip for debridement purposes. I will leave wound care up patient's blood care providers at his [facility] facility. Physical Exam Vital Signs: Temp Pulse Resp BP Pulse Ox 97.8 F 92 15 119/78 96 12/10/18 07:47 12/10/18 07:58 12/10/18 07:58 12/10/18 07:47 12/10/18 07:58 Intake & Output 12/09/18 12/10/18 12/11/18 06:59 06:59 06:59 Intake Total 2408 3696 Output Total 2500 1700 Balance -92 1995 Weight 119.8 kg 121.7 kg General appearance: PRESENT: no acute distress, well-developed, well-nourished Neck exam: ABSENT: carotid bruit, JVD, lymphadenopathy, thyromegaly Respiratory exam: PRESENT: clear to auscultation surinder. ABSENT: rales, rhonchi, wheezes Cardiovascular exam: PRESENT: RRR. ABSENT: diastolic murmur, rubs, systolic murmur Pulses: PRESENT: normal dorsalis pedis pul Vascular exam: PRESENT: normal capillary refill GI/Abdominal exam: PRESENT: normal bowel sounds, soft. ABSENT: distended, guar ding, mass, organolmegaly, rebound, tenderness Extremities exam: PRESENT: full ROM. ABSENT: calf tenderness, clubbing, pedal edema Neurological exam: PRESENT: alert, awake, oriented to person, CN II-XII grossly intact. ABSENT: motor sensory deficit Psychiatric exam: PRESENT: appropriate affect, normal mood. ABSENT: homicidal ideation, suicidal ideation Skin exam: PRESENT: dry, intact, warm. ABSENT: cyanosis, rash Adult Front & Back Image: 1 - Decubiti 2 - Decubiti 3 - Multiple decubiti Results Laboratory Results: 12/10/18 05:38 12/10/18 05:38 12/10/18 12/10/18 05:38 05:38 WBC 6.8 RBC 3.46 L Hgb 11.3 L Hct 33.5 L MCV 97 MCH 32.7 MCHC 33.8 RDW 13.5 Plt Count 298 Seg Neutrophils % 77.1 Sodium 133.4 L Potassium 4.4 Chloride 108 H Carbon Dioxide 19 L Anion Gap 6 BUN 28 H Creatinine 0.92 Est GFR ( Amer) > 60 Glucose 88 Calcium 7.8 L Impressions: Chest X-Ray 12/07/18 14:39 IMPRESSION: Borderline cardiomegaly without pulmonary edema. Cannot exclude limited pneumonia in the right middle lobe or lower lobe. Abdomen/Pelvis CT 12/07/18 16:56 IMPRESSION: Right pleural effusion with mild atelectasis in the right lower lobe. Small right intrarenal calculi. Mild bilateral hydronephrosis. No obstructing calculus is seen on either side. Osseous findings as described. Qualifiers - * PATIENT BEING DISCHARGED WITH ANY OF THE FOLLOWING DIAGNOSIS: No Acute Heart Failure - Is this a Heart Failure Patient?: No Plan Time Spent: Greater than 30 Minutes
[2018-12-10 16:14] VITALS: BP 116/75
[2018-12-10] MEDS: CEFEPIME HCL 2 GM in DEXTROSE 5%-WATER 50 ML IV SCH (17:26)
[2018-12-10] MEDS: TAMSULOSIN HCL 0.4 MG CAP.SR.24H PO SCH (17:26)
== END 2018-12-10 18:12 | DRG 871 ==
LOC: ER 13:35 → EEVIPCON 18:57 → EH 18:57 → 3W 21:43
PROVIDERS: ADMIT Family Medicine; ATTEND Family Medicine
DX: A41.9 Sepsis, unspecified organism (principal); J18.9 Pneumonia, unspecified organism; N17.9 Acute kidney failure, unspecified; N39.0 Urinary tract infection, site not specified; M62.82 Rhabdomyolysis; I48.2 Chronic atrial fibrillation; L89.112 Pressure ulcer of right upper back, stage 2; L89.222 Pressure ulcer of left hip, stage 2; L89.892 Pressure ulcer of other site, stage 2; E87.5 Hyperkalemia; R33.9 Retention of urine, unspecified; Z79.01 Long term (current) use of anticoagulants; Z79.899 Other long term (current) drug therapy
CPT/HCPCS: 36415; 71045; 74176; 80048; 80053; 80076; 81001; 82803; 82962; 83605; 85025; 85610; 87040; 87086; 87088; 87186; 93005; 93010; 94640; 99291; J0692; J1815; J3370; J3490; J7030; J7060; J7620

== ENCOUNTER → 2019-01-18 | Outpatient (CLI) | payer MEDICARE, BC ==
--- NOTE | 2019-01-19 09:58 | XCELERA REPORT ---
[address] [address] Lower Extremity Arterial Evaluation Name: ANIL LOREDO Age: 83 yrs Gender: Male : 1935 Patient Status: Outpatient Patient Location: [facility] Study Date: 01/18/2019 01:19 PM Procedure: A color flow and duplex scan of the lower extremity arteries was performed bilaterally with velocity and waveform anaylsis. Ankle brachial indicies performed. Reason For Study: LT HEEL ULCER Ordering Physician: LIZET DUPREE Performed By: Yousif Luong Measurements and Calculations Right Left GAS MAIN AND LINE FITTER PSV 80.0 72.0 cm/sec Prox PFA PSV -47.1 -51.0 cm/sec Prox SFA PSV 67.2 58.5 cm/sec Mid SFA PSV -49.9 -56.8 cm/sec Dist SFA PSV -45.6 -58.1 cm/sec Prox Pop A PSV 56.2 60.2 cm/sec Dist KEIRA PSV 24.6 62.5 cm/sec Dist FLOOR INSTALLATION MECHANIC PSV 69.1 -50.3 cm/sec Chandler Pedis PSV 29.9 -66.0 cm/sec Right Side Arterial Evaluation Normal velocity and triphasic waveforms noted from the Common Femoral artery to the infrageniculate vessels . Ankle Brachial index 1.40. Left Side Arterial Evaluation Normal velocity and triphasic waveforms noted from the Common Femoral artery to the infrageniculate vessels . Ankle Brachial index 1.38. Interpretation Summary No hemodynamically significant lesions in the bilateral lower extremities, on duplex imaging, at rest. ÁNGEL's are normal, suggesting no significant arterial compromise. : LIZET DUPREE > Lizet Dupree
== END ==
LOC: SP 13:17
PROVIDERS: ATTEND Surgery
DX: L97.422 Non-pressure chronic ulcer of left heel and midfoot with fat layer exposed (principal); L97.412 Non-pressure chronic ulcer of right heel and midfoot with fat layer exposed
CPT/HCPCS: 93922; 93925

== ENCOUNTER → 2019-03-07 | Outpatient (CLI) | payer MEDICARE, BC ==
[2019-03-07 15:19] LABS: AMORPHOUS SEDIMENT,URINE TRACE /HPF; APPEARANCE,URINE TURBID; BILIRUBIN,URINE NEGATIVE (NEGATIVE); COLOR,URINE AMBER; GLUCOSE, URINE NEGATIVE (NEGATIVE); KETONES,URINE NEGATIVE (NEGATIVE); LEUKOCYTE ESTERASE,URINE LARGE (NEGATIVE); NITRITE,URINE POSITIVE (NEGATIVE); PROTEIN,URINE 100 mg/dL (NEGATIVE); URINE SPECIFIC GRAVITY 1.017; UROBILINOGEN,URINE NEGATIVE mg/dL (<2.0)
== END ==
LOC: PNR 14:47
PROVIDERS: ATTEND Family Medicine
DX: N39.0 Urinary tract infection, site not specified (principal)
CPT/HCPCS: 81001; 87086; 87088; 87186

== ENCOUNTER 2020-03-06 13:07 | Emergency (ER) | payer MEDICARE, BC ==
--- NOTE | 2020-03-06 14:39 | ER Document Report ---
ED GI/ - General Chief Complaint: Trouble Voiding Stated Complaint: ABDOMINAL PAIN Time Seen by Provider: 03/06/20 13:53 Primary Care Provider: DIMITRIS ABDUL PA-C [Primary Care Provider] - Follow up as needed Notes: 84-year-old male was sent in from home due to lower abdomen discomfort. Patient has a history of UTIs and urinary retention. The patient complains of pressure in his lower abdomen. Unable to pee. Denies any fever chills. Denies chest pain no shortness of breath describes the pressure in his lower abdominal as pressure. Denies any recent hematuria or dysuria. Denies flank pain or back pain. Denies night sweats hemoptysis or gland swelling TRAVEL OUTSIDE OF THE [place] IN LAST 30 DAYS: No - Related Data Allergies/Adverse Reactions: No Known Allergies Allergy (Unverified 12/07/18 15:18) Past Medical History - Social History Smoking Status: Unknown if Ever Smoked Family History: None - Past Medical History Cardiac Medical History: Reports: Hx Atrial Fibrillation, Hx Congestive Heart Failure, Hx Heart Attack, Hx Hypertension Pulmonary Medical History: Reports: Hx COPD, Hx Pneumonia Endocrine Medical History: Reports: Hx Diabetes Mellitus Type 2 Renal/ Medical History: Denies: Hx Peritoneal Dialysis Review of Systems - Review of Systems Constitutional: denies: Chills, Fever EENT: No symptoms reported Cardiovascular: denies: Chest pain, Dyspnea, Edema Respiratory: denies: Cough, Short of breath Gastrointestinal: Abdominal pain, Nausea. denies: Diarrhea, Vomiting Genitourinary: Retention. denies: Discharge, Flank pain, Incontinence Musculoskeletal: No symptoms reported Skin: No symptoms reported Hematologic/Lymphatic: No symptoms reported Neurological/Psychological: denies: Headaches -: Yes All other systems reviewed and negative Physical Exam - Vital signs Vitals: Temp Pulse Resp BP Pulse Ox 98.4 F 100 18 127/72 H 98 03/06/20 13:43 03/06/20 13:43 03/06/20 13:43 03/06/20 13:43 03/06/20 13:43 - Notes Notes: GENERAL_APPEARANCE: well_nourished, alert, cooperative, no_acute_distress, no_obvious_discomfort. VITALS: reviewed, see vital signs table. HEAD: no_swelling\tenderness on the head. EYES: Sclera anicteric, conjunctiva_clear. NOSE: no_nasal_discharge. MOUTH: (-)decreased moisture. THROAT: no_tonsilar_inflammation, no_airway_obstruction. no_lymphadenopathy NECK: supple, no_neck_tenderness, (-)thyromegaly. BACK: no_back_tenderness. ABDOMEN: soft, prepubic_abd_tenderness, (-)guarding, (-)rebound, no_organomegaly, palpable below umbilicus EXTREMITIES: good pulses in all_extremities, no_swelling\tenderness in the extremities, no_edema. SKIN: warm, dry, good_color, no_rash. MENTAL_STATUS: speech_clear, oriented_X_3, normal_affect, responds_appropriately to questions. Course - Re-evaluation Re-evalutation: 03/06/20 14:38 Eight 4-year-old male presents with urinary retention and possible UTI. We placed a Iqbal catheter and got about 400 cc out. Patient had relief of his discomfort. We will send the urine to the lab looking for UTI. Has had urinary retention before. 03/06/20 17:55 Patient does have a UTI we will culture the urine given a dose of Rocephin here we will leave the Iqbal catheter in place the patient on antibiotics for home. Follow-up with urology or primary care for urinary retention and UTI. - Vital Signs Vital signs: Temp Pulse Resp BP Pulse Ox 98.4 F 100 18 127/72 H 98 03/06/20 13:43 03/06/20 13:43 03/06/20 13:43 03/06/20 13:43 03/06/20 13:43 - Laboratory Laboratory results interpreted by me: 03/06/20 14:12 Urine Protein 100 H Urine Ketones TRACE H Urine Blood LARGE H Ur Leukocyte Esterase LARGE H Discharge - Discharge Clinical Impression: Acute urinary retention UTI (urinary tract infection) Qualifiers: Hematuria presence: without hematuria Condition: Good Disposition: HOME, SELF-CARE Instructions: Urinary Tract Infection ([facility]), Nitrofurantoin ([facility]), Urinary Retention ([facility]) Additional Instructions: Have catheter removed in 7 to 10 days take antibiotic as prescribed Prescriptions: Nitrofurantoin Monohyd/M-Cryst [Macrobid 100 mg Capsule] 100 mg PO BID #20 cap Referrals: ABDUL,DIMITRIS E, PA-C [Primary Care Provider] - Follow up as needed
[2020-03-06 14:47] LABS: APPEARANCE,URINE CLOUDY; BILIRUBIN,URINE NEGATIVE (NEGATIVE); COLOR,URINE AMBER; GLUCOSE, URINE NEGATIVE (NEGATIVE); KETONES,URINE TRACE mg/dL (NEGATIVE); LEUKOCYTE ESTERASE,URINE LARGE (NEGATIVE); NITRITE,URINE NEGATIVE (NEGATIVE); PROTEIN,URINE 100 mg/dL (NEGATIVE); URINE SPECIFIC GRAVITY 1.016; UROBILINOGEN,URINE NEGATIVE mg/dL (<2.0)
[2020-03-06] MEDS ORDERED: LIDOCAINE 1% INJ-PF (10 MG/ML) 30 ML SDV NEB ONE (18:02)
[2020-03-06] MEDS ORDERED: CEFTRIAXONE INJ 500 MG VIAL IM ONE (18:02)
[2020-03-06] MEDS ORDERED: CEFTRIAXONE 1 GM/D5W RTU 1 GM/50 ML RTUPB IV ONE ×2 (18:30)
[2020-03-06 19:06] VITALS: BP 113/65
== END 2020-03-06 19:08 | disposition home or self-care (01) ==
LOC: ER 13:07
DX: N39.0 Urinary tract infection, site not specified (principal); R33.9 Retention of urine, unspecified; R11.0 Nausea; E11.9 Type 2 diabetes mellitus without complications; J44.9 Chronic obstructive pulmonary disease, unspecified; I10 Essential (primary) hypertension
CPT/HCPCS: 99284; 96372; 87086; 87088; 81001; J3490; J0696; 87186

== ENCOUNTER 2020-05-06 14:32 | Emergency (ER) | payer MEDICARE, BC ==
--- NOTE | 2020-05-06 15:30 | ER Document Report ---
ED General - General Chief Complaint: Blood in Catheter Stated Complaint: BLOOD IN CATHETER Time Seen by Provider: 05/06/20 15:11 Primary Care Provider: ELEN BARTON MD [Primary Care Provider] - Follow up as needed TRAVEL OUTSIDE OF THE [place] IN LAST 30 DAYS: No - HPI Notes: Patient is an 84-year-old male presents to the emergency department for evaluation of blood in his catheter. This is happened in the past. He is on Eliquis. He woke in the middle the night and states that sheets were blood and urine soaked. Otherwise he is not a very good historian. He cannot tell me how much urine has been draining since then. He denies any pain. He states he has been eating and drinking, "taking the medicines my daughter gives me," and denies any other complaints or concerns. - Related Data Allergies/Adverse Reactions: No Known Allergies Allergy (Verified 05/06/20 14:38) Home Medications: TAMSULOSIN. ELIQUIS. METHENAMINE LINH Past Medical History - General Information source: Patient - Social History Smoking Status: Never Smoker Chew tobacco use (# tins/day): No Frequency of alcohol use: None Drug Abuse: None Family History: None Patient has homicidal ideation: No - Past Medical History Cardiac Medical History: Reports: Hx Atrial Fibrillation, Hx Congestive Heart Failure, Hx Heart Attack, Hx Hypertension Pulmonary Medical History: Reports: Hx COPD, Hx Pneumonia Endocrine Medical History: Reports: Hx Diabetes Mellitus Type 2 Renal/ Medical History: Denies: Hx Peritoneal Dialysis Review of Systems - Review of Systems Constitutional: No symptoms reported EENT: No symptoms reported Cardiovascular: No symptoms reported Respiratory: No symptoms reported Gastrointestinal: No symptoms reported Genitourinary: See HPI Musculoskeletal: No symptoms reported Skin: No symptoms reported Neurological/Psychological: No symptoms reported -: Yes All other systems reviewed and negative Physical Exam - Vital signs Vitals: Temp Pulse Resp BP Pulse Ox 98.4 F 100 20 140/85 H 98 05/06/20 14:33 05/06/20 14:33 05/06/20 14:33 05/06/20 14:33 05/06/20 14:33 - Notes Notes: There is a very pleasant 84-year-old male appears stated age, no acute distress. Head is normocephalic and atraumatic, pupils are equal and round, reactive to light. Oral mucosa is moist. Heart regular rate and rhythm, lungs show mild diminished breath sounds in the bases but no wheezes, rales, rhonchi. Abdomen soft, nontender, normoactive bowel sounds. Examination of the penis shows a circumcised male with a Iqbal catheter in place. There is grossly bloody urine leaking around the catheter. There is less than 50 cc of dark red urine noted in the catheter bag. Extremities without cyanosis or clubbing. Posterior calves are nontender. Skin is warm and dry. Course - Re-evaluation Re-evalutation: 05/06/20 15:29 Patient presents emergency department for evaluation. We will replace the catheter with a three-way, perform CBI. I will order a CBC to be sure he has not been bleeding heavily. He is currently stable, we will continue to monitor. 05/06/20 18:52 Patient tolerating CBI well. Urine has lightened significantly. Will run until clear, discharge patient home. His hemoglobin is stable. He is to follow-up with urology and return to the ED with worsening. - Vital Signs Vital signs: Temp Pulse Resp BP Pulse Ox 98.6 F 104 H 16 154/66 H 98 05/06/20 20:15 05/06/20 20:15 05/06/20 20:15 05/06/20 20:15 05/06/20 20:15 - Laboratory Results Result Diagrams: 05/06/20 16:00 Laboratory Results Interpreted: 05/06/20 16:00 RBC 3.69 L Hgb 12.3 L Hct 36.0 L MCV 98 H Critical Laboratory Results Reviewed: No Critical Results - Radiology Results Critical Radiology Results Reviewed: No Critical Results Discharge - Discharge Clinical Impression: Hematuria Condition: Stable Disposition: HOME, SELF-CARE Instructions: Hematuria ([facility]) Additional Instructions: We were able to irrigate your bladder and clear the blood from your urine. Please follow-up closely with your primary care provider as well as urology. Return to the emergency department with worsening or new concerning symptoms of any sort. Referrals: ELEN BARTON MD [Primary Care Provider] - Follow up as needed
[2020-05-06 16:08] LABS: ABSOLUTE BASOPHILS # (AUTO) 0.1 10^3/uL (0.0-0.2); ABSOLUTE EOSINOPHILS # (AUTO) 0.2 10^3/uL (0.0-0.6); ABSOLUTE LYMPHOCYTES (AUTO) 2.2 10^3/uL (0.5-4.7); ABSOLUTE MONOCYTES (AUTO) 0.5 10^3/uL (0.1-1.4); ABSOLUTE NEUT (AUTO) 3.8 10^3/uL (1.7-8.2); BASOPHILS % (AUTO) 0.9 % (0-2); EOSINOPHILS % (AUTO) 3.5 % (0-6); HEMOGLOBIN 12.3 g/dL (13.5-17.0); LYMPHOCYTES % (AUTO) 32.6 % (13-45); MEAN CORPUSCULAR HEMOGLOBIN 33.4 pg (27.0-33.4); MEAN CORPUSCULAR HGB CONC 34.2 g/dL (32.0-36.0); MEAN CORPUSCULAR VOLUME 98 fl (80-97); MONOCYTES % (AUTO) 7.3 % (3-13); PLATELET COUNT 193 10^3/uL (150-450); RED BLOOD COUNT 3.69 10^6/uL (4.35-5.55); RED CELL DISTRIBUTION WIDTH 13.6 % (11.5-14.0); SEGMENTED NEUTROPHILS % (AUTO) 55.7 % (42-78); TOTAL CELLS COUNTED % (AUTO) 100 %; WHITE BLOOD COUNT 6.9 10^3/uL (4.0-10.5)
[2020-05-06 20:17] VITALS: BP 154/66
== END 2020-05-06 20:18 | disposition home or self-care (01) ==
LOC: ER 14:32 → EEVIPCON 14:32 → ER 20:18
DX: R31.9 Hematuria, unspecified (principal); Z46.6 Encounter for fitting and adjustment of urinary device; I48.91 Unspecified atrial fibrillation; I50.9 Heart failure, unspecified; I11.0 Hypertensive heart disease with heart failure; J44.9 Chronic obstructive pulmonary disease, unspecified; E11.9 Type 2 diabetes mellitus without complications; Z79.01 Long term (current) use of anticoagulants; I25.2 Old myocardial infarction
CPT/HCPCS: 36415; 51702; 85025; 99284